=== PATIENT | female | born 1990 | race Caucasian/White ===

== ENCOUNTER → 2017-03-06 | Outpatient (CLI) | payer SELFPAY ==
[2016-10-17 15:50] VITALS: BP 138/82
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
== END | disposition home or self-care (01) ==
LOC: US 17:35
PROVIDERS: ATTEND Family Medicine
DX: M79.651 Pain in right thigh (principal)
CPT/HCPCS: 93971